=== PATIENT | female | born 1975 | race Caucasian/White ===

== ENCOUNTER → 2016-08-27 | Outpatient (CLI) | payer OTHER | LOC: FLAB 11:44 | PROVIDERS: ATTEND Internal Medicine | DX: R07.89 Other chest pain (principal) ==

== ENCOUNTER 2018-04-11 13:16 | Emergency (ER) | payer OTHER ==
--- NOTE | 2018-04-11 14:03 | EDPHY ---
H & P Stated Complaint: abnormal lab work Time Seen by Provider: 04/11/18 13:36 HPI/ROS: Clinical Impression: Shortness of breath Assessment/Plan: 42-year-old female with no reported pulmonary history presents to the emergency department with 6 weeks of shortness of breath, orthopnea, dyspnea on exertion. Patient has completed a 10 day course of doxycycline, 10 day course of Augmentin, Medrol Dosepak, and his current lead taking 40 mg of prednisone. She also tried albuterol and steroid inhalers. CT chest without contrast ordered by PCP yesterday revealed scattered subsegmental foci of ground-glass opacity bilaterally, no acute airway thickening, interstitial thickening, consolidation, pleural effusion or pneumothorax. EKG today shows normal sinus rhythm, no acute ST or T-wave changes, troponin negative, labs show a mild leukocytosis, no evidence of eosinophilia, negative troponin, elevated D-dimer of 0.65, and otherwise stable electrolytes. Case discussed with Dr. Perez from pulmonology who reviewed patient's CT scan from yesterday. He did not feel patient needed an emergent CTA today. He recommended she stay on prednisone and he will plan to see her this week in clinic. Patient is comfortable with this plan. All questions answered. Warning signs to return to ED sooner alignment discharge. Differential Dx: Shortness of breath including but not limited to pulmonary infectious process, COPD, asthma, pulmonary embolus and congestive heart failure, myocardial ischemia, pulmonary embolus, chest wall pain, pleural inflammation and pulmonary infectious causes. ED Procedures: CT chest W/O contrast performed on 04/07/[address] Sal Jesus: as scattered subsegmental foci of ground-glass opacity bilaterally in the acute setting this could represent foci of pulmonary hemorrhage, atypical pneumonia such as PCP, mycoplasma or viral pneumonia. There was no reported interstitial thickening, airway thickening, subpleural honeycombing, bronchiectasis, reticular nodular changes, consolidation, pleural effusion or pneumothorax. Cardiac structures and great vessels were unremarkable and there was no pathologic mediastinal or hilar adenopathy. ED Course: 1405: Case discussed with Dr. Hdz, EKG reviewed, normal sinus rhythm, no acute ST or T-wave changes 1428: labs reviewed, elevated d-dimer. Will discuss with pulmonology before further scans. Dr. Perez paged. 1520: Discussed with Dr. Perez from pulmonology. He did not feel patient needed an a emergent CTA. He was reassured by her diagnostic workup thus far and recommended she continue prednisone. Advised follow-up in his clinic as an outpatient. Chief Complaint: Shortness of breath HPI: This is a 42-year-old female with a reported past medical history of depression , hormone replacement therapy, and chronic pain currently on Suboxone, who presents to the emergency department with 6 weeks of shortness of breath. Patient has been managed by her primary care doctor until recently. She states symptoms started with sinus congestion and cough and she initially thought she had a viral infection. In the last 6 weeks, she has taken a 10 day course of doxycycline, and recently finished a 10 day course of Augmentin. She also completed Medrol Dosepak and is currently on 40 mg of prednisone daily. She has tried albuterol inhalers as well as steroid inhalers. She had CBC at her primary care doctor several times showing progressive increase in her eosinophils. There was no mention of elevated white blood count. She did not have any additional lab work. She had a normal chest x-ray early on in her symptoms and a CT chest without contrast 4 days ago. She reports no chest pain but does have increased pain with deep breathing, exertion, and increased shortness of breath with lying flat. No asymmetric lower extremity pain, swelling or erythema and no history of DVT or PE. No recent travel outside the [place] She is on Premarin daily secondary to a total hysterectomy. She quit smoking 6 weeks ago. No reported history of hypertension, hyperlipidemia, diabetes, or first-degree family relative with cardiovascular disease. Her mother has asthma but she reports no chronic pulmonary condition prior to 6 weeks ago. She has not yet seen a bulb planter and was referred to the ED today for continuing symptoms. PMH: Depression, chronic pain Pertinent Past Surgical History: Total hysterectomy now on Premarin Family History: Mother with asthma uncle with IL at age 48 Social History: Quit smoking 6 weeks ago, on Suboxone for chronic pain ROS: All other systems negative Constitutional: No fever, no chills, appetite change, no unexplained weight loss, documented fever. Positive night sweats Eyes: No discharge, vision change ENT: No sore throat, congestion, ear pain. Cardiovascular: No chest pain, no palpitations. Respiratory: Improved cough Gastrointestinal: No abdominal pain, no vomiting, diarrhea. Genitourinary: No hematuria, dysuria, flank pain, pelvic pain Musculoskeletal: No back pain, joint swelling, joint pain, myalgias. Skin: No rashes, color change. Neurological: No headache, dizziness, weakness. Physical Exam: General Appearance: Alert, oriented, appropriate, cooperative, NAD, well hydrated, non-toxic appearing, VSS, no hypoxia, saturating 98% on room air HEENT: TMs are clear bilaterally no perforation or FB, no injection, no evidence of serous or mucopurulent otitis. Oropharynx clear is no erythema or exudates, no tonsillar hypertrophy or asymmetry. Dentition without abnormality. Eyes: PERRLA, no acute vision change, nystagmus, swelling, discharge, pain or photosensitivity. Conjunctiva pink, no pallor or injection Neck: Supple, nontender, no lymphadenopathy, no midline pain, FROM, no meningismus. Respiratory: There are no retractions, lungs are clear to auscultation. Cardiac: Regular rate and rhythm, no murmurs or gallops. Gastrointestinal: Abdomen is soft, nontender, bowel sounds normal, no masses/ hernia, no rigidity, guarding or focal peritoneal findings. Neurological: Alert and oriented x 3, CN 2-12 grossly intact, normal gait no ataxia, DTR's intact, normal sensation and strength Skin: Warm, dry, no rashes, no nodules on palpation. Musculoskeletal: Extremities are symmetrical, full range of motion, no tenderness, deformity, swelling, or erythema, no asymmetric calf swelling, erythema or pain to palpation Psychiatric: Patient is oriented X 3, there is no agitation. MDM: Patient was seen independently by established practice protocols. Secondary supervising physician at time of evaluation was Dr. Hdz. Diagnosis: Shortness of breath . New, requires workup Summary: See Assessment and Plan for summary of ED visit Clinical lab tests: ordered / reviewed. Independent visualization of images, tracing, or specimens: Yes. Decision to obtain medical records or history from someone other than the patient: Patient's family Review / Summarize previous medical records: Reviewed patient's CT scan from Discussed patient with another provider: Dr. Hdz, Dr. Perez Risk of comlications, morbidity, mortality: Presenting problem moderate Diagnostic procedures moderate Management Options moderate Patient Progress: Stable. - Personal History LMP (Females 10-55): Hysterectomy Current Tetanus Diphtheria and Acellular Pertussis (TDAP): Yes - Medical/Surgical History Hx Asthma: No Hx Chronic Respiratory Disease: No Hx Diabetes: No Hx Cardiac Disease: No Hx Renal Disease: No Hx Cirrhosis: No Hx Alcoholism: No Hx HIV/AIDS: No Hx Splenectomy or Spleen Trauma: No Other PMH: MRSA [id number] ago - Social History Smoking Status: Former smoker Constitutional: Initial Vital Signs Temperature (C) 37.2 C 04/11/18 13:17 Heart Rate 91 04/11/18 13:17 Respiratory Rate 16 04/11/18 13:17 Blood Pressure 168/115 H 04/11/18 13:17 O2 Sat (%) 96 04/11/18 13:17 O2 Delivery Mode Room Air Allergies/Adverse Reactions: No Known Drug Allergies Allergy (Verified 04/11/18 13:23) Home Medications: Medication Instructions Recorded DULoxetine 04/11/18 Prednisone 04/11/18 Premarin 04/11/18 SUBOXONE 2mg/0.5mg 04/11/18 Medical Decision Making - Data Points Laboratory Results: Laboratory Results 04/11/18 14:00 04/11/18 14:00 04/11/18 04/11/18 04/11/18 14:47 14:00 14:00 WBC RBC Hgb Hct MCV MCH MCHC RDW Plt Count MPV Neut % (Auto) Lymph % (Auto) [place] % (Auto) Eos % (Auto) Baso % (Auto) Nucleat RBC Rel Count Absolute Neuts (auto) Absolute Lymphs (auto) Absolute Monos (auto) Absolute Eos (auto) Absolute Basos (auto) Absolute Nucleated RBC Immature Gran % Immature Gran # D-Dimer 0.65 ug/mLFEU H ug/mLFEU (0.00-0.50) Sodium 138 mEq/L mEq/L (135-145) Potassium 4.8 mEq/L mEq/L (3.3-5.0) Chloride 102 mEq/L mEq/L (97-110) Carbon Dioxide 25 mEq/l mEq/l (22-31) Anion Gap 11 mEq/L mEq/L (6-14) BUN 19 mg/dL mg/dL (7-23) Creatinine 0.7 mg/dL mg/dL (0.6-1.0) Estimated GFR > 60 Glucose 107 mg/dL H mg/dL (70-100) Calcium 10.0 mg/dL mg/dL (8.5-10.4) POC Troponin I 0.01 ng/mL ng/mL (0.00-0.08) 04/11/18 14:00 WBC 9.69 10^3/uL H 10^3/uL (3.80-9.50) RBC 4.19 10^6/uL 10^6/uL (4.18-5.33) Hgb 13.7 g/dL g/dL (12.6-16.3) Hct 39.8 % % (38.0-47.0) MCV 95.0 fL fL (81.5-99.8) MCH 32.7 pg pg (27.9-34.1) MCHC 34.4 g/dL g/dL (32.4-36.7) RDW 12.8 % % (11.5-15.2) Plt Count 458 10^3/uL H 10^3/uL (150-400) MPV 8.8 fL fL (8.7-11.7) Neut % (Auto) 85.0 % H % (39.3-74.2) Lymph % (Auto) 12.1 % L % (15.0-45.0) [place] % (Auto) 1.7 % L % (4.5-13.0) Eos % (Auto) 0.3 % L % (0.6-7.6) Baso % (Auto) 0.6 % % (0.3-1.7) Nucleat RBC Rel Count 0.0 % % (0.0-0.2) Absolute Neuts (auto) 8.24 10^3/uL H 10^3/uL (1.70-6.50) Absolute Lymphs (auto) 1.17 10^3/uL 10^3/uL (1.00-3.00) Absolute Monos (auto) 0.16 10^3/uL L 10^3/uL (0.30-0.80) Absolute Eos (auto) 0.03 10^3/uL 10^3/uL (0.03-0.40) Absolute Basos (auto) 0.06 10^3/uL 10^3/uL (0.02-0.10) Absolute Nucleated RBC 0.00 10^3/uL 10^3/uL (0-0.01) Immature Gran % 0.3 % % (0.0-1.1) Immature Gran # 0.03 10^3/uL 10^3/uL (0.00-0.10) D-Dimer Sodium Potassium Chloride Carbon Dioxide Anion Gap BUN Creatinine Estimated GFR Glucose Calcium POC Troponin I Point of Care Test Results: Chemistry 04/11/18 14:47 POC Troponin I 0.01 ng/mL ng/mL (0.00-0.08) Departure - Departure Disposition: Home, Routine, Self-Care Condition: Good Instructions: Shortness of Breath (ED) Additional Instructions: Please follow up with Dr. Perez from pulmonology. Please call to make an appointment. We discussed your case with him today. He did not feel you needed additional emergent CT angiogram or other lab work today. Continue taking the prednisone daily that you are taking. Return to the emergency department for worsening shortness of breath, chest pain, fainting episodes, or any other concerns. Referrals: Germaine Scott MD [Primary Care Provider] - As per Instructions Xavier Perez MD [Medical Doctor] - As per Instructions
[2018-04-11 14:10] LABS: PLATELET COUNT 458 10^3/uL (150-400)
[2018-04-11 15:53] VITALS: BP 134/78
--- NOTE | 2018-04-11 16:18 | CPEKG ---
Test Reason : OPEN Blood Pressure : / mmHG Vent. Rate : 075 BPM Atrial Rate : 075 BPM P-R Int : 135 ms QRS Dur : 076 ms QT Int : 354 ms P-R-T Axes : -04 063 032 degrees QTc Int : 396 ms Sinus rhythm Confirmed by Tita Hdz ([id number]) on 04/11/2018 4:18:24 PM Referred By: Confirmed By:Tita Hdz
== END 2018-04-11 15:53 | disposition home or self-care (01) ==
DX: R06.02 Shortness of breath (principal); Z79.52 Long term (current) use of systemic steroids; Z87.891 Personal history of nicotine dependence
CPT/HCPCS: 84484-PO

== ENCOUNTER → 2018-10-23 | Outpatient (CLI) | payer OTHER | LOC: FIMAGING 15:07 | PROVIDERS: ATTEND Internal Medicine Pulmonary Disease | DX: J40 Bronchitis, not specified as acute or chronic (principal) ==